=== PATIENT | female | born 1990 | race Caucasian/White ===

== ENCOUNTER → 2019-10-20 | Outpatient (CLI) | payer OTHER, SELFPAY ==
[2019-10-20 15:27] LABS: Absolute Lymphocyte Count 1.44 X10^3/uL (0.83-4.51); Absolute Neutrophil Count 4.8 X10^3/uL (2.0-7.7); Basophil# 0.04 X10^3/uL; Basophil% 0.6 % (0-1); Eosinophil# 0.02 X10^3/uL; Eosinophils% 0.3 % (0-5); Hematocrit 41.7 % (37-47); Hemoglobin 13.9 g/dL (12.0-15.0); Lymphocyte # 1.44 X10^3/ul (4.0); Lymphocyte % 21.1 % (19-41); Mean Corp Hgb Conc 33.3 g/dL (32-36); Mean Corpuscular Hgb 29.3 pg (27.0-32.0); Mean Corpuscular Volume 87.8 fL (81-99); Mean Platelet Vol. 10.4 fl (6.2-12.0); Monocyte# 0.47 X10^3/uL; Monocyte% 6.9 % (0-10); NRBC Flagged by Analyzer 0 % (0-5); Neutrophil # 4.83 X10^3/uL (2.7-7.7); Neutrophil % 70.8 % (47-70); Platelet Count 222 K/mm3 (150-450); RBC Distribution Width CV 12.7 % (11.6-14.6); RBC Distribution Width SD 41.1 fl (35.1-43.9); Red Blood Count 4.75 M/mm3 (4.2-5.4); White Blood Count 6.8 K/mm3 (4.4-11.0)
[2019-10-20 15:52] LABS: Thyroid Stim Hormone (TSH) 3.12 uIU/mL (0.358-3.74)
[2019-10-20 18:10] LABS: Chlamydia Trachomatis by PCR Negative (Negative); Neisserai gonorrhoeae by PCR Negative (Negative); Probe Check PASS; Sample Adequacy Control PASS; Specimen Processing Control PASS
[2019-10-21 08:35] LABS: HIV - WCH Non-Reactive (Nonreactive); Hepatitis B Surface Antigen Non-Reactive (Nonreactive); Hepatitis C Antibody Non-Reactive (Nonreactive); Rubella IgG 114.2 IU/mL
[2019-10-21 16:01] LABS: Free T3 2.4 pg/mL (2.18-3.98); T4 Free Direct 0.91 ng/dL (0.76-1.46)
[2019-10-22 08:07] LABS: Prenatal RPR NONREACTIVE (NONREACTIVE)
[2019-10-24 12:17] LABS: Thyroid Peroxidase AB 14 IU/mL (0-34)
== END | disposition home or self-care (01) ==
PROVIDERS: PCP Family Medicine; Referring Provider Obstetrics & Gynecology; Visit Provider Obstetrics & Gynecology
DX: Z12.4 Encounter for screening for malignant neoplasm of cervix (principal); Z11.3 Encounter for screening for infections with a predominantly sexual mode of transmission; O99.281 Endocrine, nutritional and metabolic diseases complicating pregnancy, first trimester; Z3A.00 Weeks of gestation of pregnancy not specified; E07.9 Disorder of thyroid, unspecified
CPT/HCPCS: 80307; 81002; 84439; 84443; 84481; 85025; 86376; 86703; 86762; 86803; 87340; 87491; 87591

== ENCOUNTER → 2020-02-17 10:49 | Outpatient (CLI) | payer OTHER, SELFPAY ==
[2020-02-17 11:53] LABS: Hematocrit 38.7 % (37-47); Mean Corp Hgb Conc 33.6 g/dL (32-36); Mean Corpuscular Hgb 30.2 pg (27.0-32.0); Mean Platelet Vol. 10.5 fl (6.2-12.0); Platelet Count 190 K/mm3 (150-450); RBC Distribution Width CV 12.5 % (11.6-14.6); RBC Distribution Width SD 40.9 fl (35.1-43.9); White Blood Count 7.9 K/mm3 (4.4-11.0)
[2020-02-17 12:00] LABS: Glucose Challenge Gest 1H 50g 128 mg/dL (70-140)
== END ==
PROVIDERS: PCP Family Medicine; Visit Provider Obstetrics & Gynecology
DX: Z34.83 Encounter for supervision of other normal pregnancy, third trimester (principal)
CPT/HCPCS: 36415; 82950; 85027

== ENCOUNTER → 2020-04-15 | Outpatient (CLI) | payer OTHER, SELFPAY | END | disposition home or self-care (01) | LOC: LABSPEC 11:10 | PROVIDERS: PCP Family Medicine; Visit Provider Obstetrics & Gynecology | DX: Z36.85 Encounter for antenatal screening for Streptococcus B (principal) | CPT/HCPCS: 87081 ==

== ENCOUNTER 2020-05-08 03:31 | Inpatient (IN) | payer OTHER, SELFPAY ==
[2020-05-08] VITALS (55 sets, daily range): BP systolic 82–136; BP diastolic 44–76; PULSE 54–90; RESP 18–20; TEMP 36.5–38; O2SAT 96–100; BMI 33.5
[2020-05-08] MEDS: Lactated Ringers 500 ML 999 ML IV ×2 (03:50→05:04)
[2020-05-08 03:59] LABS: Absolute Lymphocyte Count 1.31 X10^3/uL (0.83-4.51); Absolute Neutrophil Count 8.8 X10^3/uL (2.0-7.7); Basophil# 0.03 X10^3/uL; Basophil% 0.3 % (0-1); Eosinophil# 0.02 X10^3/uL; Eosinophils% 0.2 % (0-5); Hematocrit 41.1 % (37-47); Hemoglobin 13.7 g/dL (12.0-15.0); Lymphocyte # 1.31 X10^3/ul (4.0); Mean Corp Hgb Conc 33.3 g/dL (32-36); Mean Corpuscular Hgb 29.8 pg (27.0-32.0); Mean Corpuscular Volume 89.3 fL (81-99); Monocyte# 0.72 X10^3/uL; Monocyte% 6.6 % (0-10); NRBC Flagged by Analyzer 0 % (0-5); Neutrophil # 8.77 X10^3/uL (2.7-7.7); Neutrophil % 80.3 % (47-70); Platelet Count 184 K/mm3 (150-450); RBC Distribution Width CV 12.8 % (11.6-14.6); RBC Distribution Width SD 42.1 fl (35.1-43.9); White Blood Count 10.9 K/mm3 (4.4-11.0)
[2020-05-08] MEDS: Lactated Ringers 1,000 ML 50 ML IV (04:20)
--- NOTE | 2020-05-08 04:38 | PCM.HP.OB ---
- Problem List (1) 39 weeks gestation of Status: Acute History Date of Admission: 05/08/20 Final SRINI: 05/09/20 Final SRINI Source: US <20 weeks Gestational age: 39 Weeks and 6 Days History of this : This is a 29 year-old, G [1], P [], at 39 6/7 weeks gestational age presents with c/o contractions. Allergies latex Allergy (Verified 05/08/20 03:52) Rash Home Medications: Home Medications Famotidine [Pepcid] 10 mg PO BID 05/08/20 Vits [Prenatabs FA] 1 tab PO DAILY 05/08/20 Smoking Status: Former smoker Alcohol: None Number of Fetus(es): 1 NST - FHR Rate Baby A Baseline: 135 Variability:: Moderate Accelerations:: 15 x 15 Decelerations:: None NST Reactive:: Yes FHR Category:: Category I Uterine Activity:: 2-3/10 min History Past Pregnancies: Past Pregnancies Delivery Date Name GA/ Weeks Outcome Route Wt Sex Labor Length Anesthesia Delivery Location Provider FOB Labs: ACOG ANTEPARTUM RECORD - HISTORY AND PHYSICAL (05/08/2020) Name: EVIE PORTER OB Physician: HAYLEE 's Physician: UNDECIDED ...................................................................... : 1990 Age: 29 Address: [address] [place] [address] [place] [address] Phone: ([phone] ([phone] Insurance Carrier: [facility] [id number] Emergency Contact: INDRA NO [phone] ...................................................................... Final SRINI: 05/09/20 By Ultrasound: 14 weeks 1 day PARITY: (G-Total Pregnancies P-Fullterm,Premature,Induced AB,Spont AB, Ectopics, Multiple,Living) SRINI CONFIRMATION: By LMP: 08/03/19 Initial Exam: 05/09/20 Final SRINI: 05/09/20 BLOOD TYPE: AFP: 1 HR PG: GBS: Original Ordering Provider: Any LUCERO Culture Group B Beta Streptococcus is not isolated. Rublla titer (>10 immune)-- Hepatatis B john AG-- CULTURES:-- OB PROBLEM LIST: AFP and CF testing declined planned. Office class encouraged. Denies depression/anxiety. EPDS on 10/20/2019 = 2. 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 Illicit Drug Use - denies use of street drugs Sexual Activity - Residence - lives with Place of - [place], [place] Hours Worked - FT Spouse-Sig Other Name - Sulaiman Porter Spouse-Sig Other Occupation - [employer] Spouse-Sig Other Phone No - [phone] PRIOR DELIVERY HISTORY DEL DATE GEST LAB WT LB WT OZ TYPE ANES LABOR TX ANTEPARTUM FLOW CHART VISIT GE RTC FU F F CA U U DATE WK MD WKS HT PN HR M SS BP ED WT CA GL D EF ST __ ____ ___ __ __ ___ __ __ __ ___ __ __ __ ___ __ 18 Apr 39 SHM 1 36 V + + 118/74 sl 211 tr ne 1 60 -3 11 Apr SHM 1 38 V + + 124/82 sl 206 tr ne 1 60 -5 06 Apr 37 SHM 1 37 V + + 104/70 sl 205 tr - 1 60 -5 30 Oct 36 SHM 1 35 V + + 96/70 sl 204 tr - 14 Oct 34 SHM 2 34 V + + 100/70 sl 201 tr - 02 Oct 32 SHM 2 33 V + + 104/72 sl 199 - - 17 Sep 30 CM 2 29 + + 118/70 sl 195 - - 02 Sep 28 SHM 2 28 ? + + 110/62 sl 193 tr - 05 Jan 24 SHM 4 24 + + 100/60 0 186 tr - 08 Dec 20 SHM 4 20 on O 110/64 0 180 tr - Nov 30 SHM 4 + - 122/74 0 179 tr - October 28 SHM 2 on US 110/70 176 tr - ANTEPARTUM NOTE(S): May 04 2020: Apr 27 2020: Apr 22 2020: see note Apr 15 2020: GBS and LARC Mar 30 2020: doing well Mar 18 2020: Breast pump/ maternity leave questions Mar 03 2020: Feb 17 2020: Questions about materinty leave. Glucola done today. AM Jan 20 2020: doing well, glucola given Dec 23 2019: feeling well, comp u/s today Nov 23 2020: see note Nov 10 2019: see note COMPREHENSIVE ANTEPARTUM NOTE(S): May 04 2020: Shannon is here for PNV. States she is feeling pretty good with only occ bouts of nauesa and heartburn. No definitive CTX. Good FM. Slight swelling in hands and feet. Urine dipped tr and neg. LSS May 04 2020: Fetus dropped in pelvis, however cervix is posterior to head. Pt plans expectant management at this time. Apr 27 2020: Shannon is here for PNV. States she is feeling pretty good. Good FM. Slight edema noted in hands and feet. No CTX that she has noticed. However, some cramping. Urine dipped tr and neg. No concerns for today. LSS Apr 27 2020: Cervix remains POSTERIOR. Discussed membrane sweeping for next visit if desires. studying for final actuarial exam so they are hoping to have the baby AFTER that. Discussed IOL indications, elective IOL at 39wga if desires, otherwise, risk for stillbirth rises slightly at end of 40wga into 41+ wga. Apr 22 2020: Evie is being seen for PNV. Pt is 37 weeks and 4 days. Pt is having possible cxs on and off. She also states she is having pressure on and off. AM Apr 22 2020: Cervix POSTERIOR and moderate. Starting maternity leave given works as nurse and advised to quarantine approx 2 weeks prior to anticipated delivery to limit potential COVID19 exposure and illness at time of delivery. Labor precautions. GBS neg. Apr 18 2020: H taken to OB. tkg Apr 15 2020: Evie is here for a PNV. Good FM. SL edema in hands and feet, especially after working a 12 hr shift. No concerns or complaints. Would like to discuss COVID testing for when she goes into labor. GBS and LARC today. Consent signed. LARC reviewed and signed. MK Apr 15 2020: LARC declined. GBS obtained. Discussed cervical check indications. Pt declines today. Preeclampsia, labor, FM precautions. Will start maternity leave in 1 week. Discussed COVID19 testing procedures. Mar 30 2020: Evie is here for PNV. She is doing well, no complaints or concerns. She did have Influenza and Tdap vaccine. FM, PTL reviewed, GBS at next visit. LMT Mar 30 2020: Plans to use luisa Layton for home support now and in early labor. Desires only her in delivery room. She will obtain breast pump via [employer]. PTL, FM precautions. Tolerating work well, has mild sciatica, but manageable with stretches. GBS at next visit, indications reviewed. Mar 18 2020: Evie is here for a PNV. Good FM. Sl edema in ankles. Has questions regarding how to get her breast pump through insurance and maternity leave paperwork/ a doctors note for extending it. MK Mar 18 2020: Reviewed vacuum and C/S indications, risks. Plans 14w maternity leave starting at 38wga. Advised to call insurance company to f/u if rx or insurance ppw needed for breast pump. Did not have labs drawn at last visit. Denies thyroid related sx. Will plan for TFTs at 6w visit if continues to feel well. Mar 03 2020: Good FM. In the process of packing / cleaning to move. She had called the office on 02/25 w/onset of sharp vaginal pain noted after sweeping her garage. Now reporting pubic bone pain which is worse when on her feet (still workin on [employer] [facility]), sitting in a hard chair, increase in activity. Better with rest, Tylenol and a warm bath. Reviewed pubic bone has cartilege in the middle, which can soften w/hormones of which can cause a separtion. Advised all good to continue as needed. She ordered a tummy support, which may offer some support. kbm Mar 03 2020: 30/3w. +Good fm. Feeling pubic bone and groin pain with long standing and movement. Relieved with tylenol, warm bath, and rest. Getting belly band for support. Precuations given to call or come in. TFTs drawn Feb 17 2020: PTL, ROM, FM precautions. Discussed ppbc and optimal childbirth spacing - plans withdraw or condoms. Discussed PABON also. 12w maternity leave planned. Reviewed quarantine at 37-38w x 2 weeks to limit COVID19 exposure at time of labor, however, pt understands majority of women labor at 40w or later. Moving date pushed back to early March. She is unable to take childbirth class, will connect with data conversion operator, considering if she would like her for labor support also. Jan 20 2020: Evie is here for PNV. She is given glucola with instructions. Encouraged Influenza and Tdap vaccines. FM reviewed. LMT Jan 20 2020: PTL, ROM precautions reviewed. Discussed labor analgesia - non-committed. Plans childbirth class. No edema. Dec 23 2019: Anatomy scan wnl. AGA, EFW 29th%. POSTERIOR PLACENTA. FEMALE. Feels well. Nausea resolved. They are moving to a home in town. Planning to paint, reviewed solvent free and good ventilation. Discussed [place] contractions and PTL precautions. Nov 27 2019: TELEHEALTH NOB VISIT. Evie is a 29 year old with an SRINI of 05/09/2020, current GA is 16 w 4 d. She resides with her , Sulaiman, and she states that they are both excited. 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, FT rn intern. She reports that they are moving to a new home soon, and discussed lifting restrictions. She states that she feels very well. No FM noted yet, and she states that she is excited to feel the baby move. Denies recent clots /spotting, as she had been experiencing earlier in the . Delivery at [facility] is planned, she states that she may have an epidural, but that she wants to research this more, an she will breastfeed. Encouraged and childbirth classes. Office practice patterns reviewed, labs were collected on 10/20/2019. Emergencies/danger signs to report, round ligament pain, reporting a suspected UTI, and common OTC medications approved/not approved for use during reviewed. She is a life long non-smoker, and denies use of drugs or ETOH. AFP and CF testing declined on 11/24/2019, consent signed as such. Genetic Screening form completed on 10/20/2019. Denies no history of depression/anxiety. EPDS on 10/20/2019 = 0. Evie takes an OTC vitamin and states that she tolerates this well. She walks 6 days a well, and works out. Exercise guidelines for reviewed. She eats a well balance diet, and has good water intake. caloric/water/dietary needs reviewed, along with recommended weight gain, limiting caffeine to one cup a day, limiting empty calories, and food safety during . Evie states that she understands all information provided during 50 minute telephone NOB visit, and has no questions following same. AW Nov 24 2019: Evie is here for a PNV. 16 wks and 1 days. No FM felt yet. No complaints at this time. Would like to discuss what she can use on her flaring up eczema spots and what her positive uria plasma means for the rest of her . MK Nov 24 2019: Evie has changed her mind and has decided NOT to have genetics testing or CF testing; new consent signed as such. kbm Nov 10 2019: Evie is here for evaluation of bleeding in . She noted some clots and spotting on Saturday. She has not had any heavy bleeding. Urine dip is negative except for trace of blood. LMT Nov 10 2019: Recurrent spotting bright red to brown with increased activity and intercourse. Denies pain, cramping, vaginal itching/burning, discharge. US with no evidence of bleed, placenta appears posterior. Exam with brown tinged mucus from cervical os without cervical or vaginal inflammation or lesion. Vaginitis NAAT obtained. Bleeding precautions reviewed. Limiting lifting to 20lb, avoid intercourse and maintain low impact activity. Oct 20 2019: Evie is here for a missed menses appt. She is doing well. LMP 08/03/2019. Has experienced some nausea but it has subsided. Updated medications, allergies and history. Taking a pnv and probiotic. This is her first . Consents signed for GC/CHL cultures and labs. SRINI 05/10/2020. ADELE REVIEW OF SYSTEMS: GENERAL - Denies fever, or chills SKIN - Denies rash, new skin lesions, or change in moles EYES - Denies blurred vision, or change in visual acuity EARS - Denies ear pain, or difficulty hearing NOSE - Denies nasal congestion, discharge, or bleeding MOUTH - Denies sore throat, or difficulty swallowing NECK - Denies pain or swelling RESPIRATORY - Denies shortness of breath, cough, wheezing CARDIOVASCULAR - Denies palpitations, chest pain, orthopnea, PND, peripheral edema, syncope or claudication GASTROINTESTINAL - Denies nausea, vomiting, diarrhea, constipation, Denies abdominal pain, melena and or bright red blood GENITOURINARY - Denies dysuria, frequency of urination, urgency, or hesitancy MUSCULOSKELETAL - Denies joint or muscle pain, or back pain NEUROLOGICAL - Denies localized numbness, weakness, or tingling PSYCHIATRIC - Denies depression, anxiety, substance abuse or suicide attempts ENDOCRINE - Denies heat or cold intolerance, weight loss or gain, increasing thirst HEMATO-IMMUNOLOGIC - Denies easy bruising, bleeding, oral ulcerations or recurrent infections GENETICS SCREENING: Age 35+ years: No Thalassemia: No Neural Tube Defect: No Down Syndrome: No YAO-SACHS: No Sickle Cell Disease: No Hemophilia: No Musc. Dystrophy: No Cystic Fibrosis: No-declines screening Julia Chorea: No Mental Retardation: No Fragile X: No Other genetic: No Other defects: No SABs/still births: No Drugs since LMP: No INFECTION HISTORY: High risk AIDS: No High risk Hepatitis: No Exposed to TB: No Exposed to Herpes: No Rash/viral illness since LMP: No History of STD: No MENSTRUAL HISTORY: *Menses Amount/Duration: 4 daysMenses Regularity: regularFrequency: monthlyMenarche (Age Onset): 13* PAST SUMMARY: PARITY: 1. Total Pregnancies............ 1 2. Full Term Pregnancies........ 0 3. Premature.................... 0 4. Abortions - Induced.......... 0 5. Abortions - Spontaneous...... 0 6. Ectopics..................... 0 7. Multiple Births.............. 0 8. Living Children.............. 0 Mom's Microbiology 05/08/20 03:41 Mucosa - Nose SARS-CoV-2 Antigen (Rapid) - Pending Mom's Labs & Results 05/08/20 05/08/20 03:50 03:50 WBC 10.9 RBC 4.60 Hgb 13.7 Hct 41.1 MCV 89.3 MCH 29.8 MCHC 33.3 RDW Std Deviation 42.1 RDW Coeff of Catrachita 12.8 Plt Count 184 MPV 11.0 Immature Gran % (Auto) 0.600 Neut % (Auto) 80.3 H Lymph % (Auto) 12.0 L [place] % (Auto) 6.6 Eos % (Auto) 0.2 Baso % (Auto) 0.3 Absolute Neuts (auto) 8.8 H Absolute Lymphs (auto) 1.31 Nucleated RBC % 0 Blood Type Pending Antibody Screen Pending Course Did the patient receive Yes care? Labs Blood Type: A RH: POSITIVE Rubella status Immune HbSAg Negative Date Done: 10/20/19 Chlamydia Negative Gonorrhea Negative HIV/AIDS Non-Reactive Group B Strep: Negative Current Obstetrical History Gestational Diabetes No Incompetent Cervix No Infertility No IUGR No Macrosomia No Hypertension/Pre-eclampsia No Placenta Previa/Abruption No PTL/PROM No Uterine anomaly No Oligohydramnios No Polyhydramnios No Multiple gestation No Past Medical History Asthma No Diabetes No Hypertension No Heart disease No Mitral valve prolapse No Neurologic/Seizure disorder/ No Migraines Kidney disease No Liver disease No Varicosities No Clotting disorders/Hx of DVT No Thyroid Dysfunction No Other medical diseases No Psychiatric disorders No Major trauma No Abnormal PAP smear No Sleep apnea No Mammogram in the last 2 years No Social History Marital Status: Alleged father Sulaiman Porter Hx Smoking No Smoking Status Former smoker Expected Infant Delivery Method: Spontaneous Vaginal Number of Visits: 12 Physical Exam Vitals: Vital Signs Temp Pulse BP Pulse Ox 98.1 F 76 136/76 H 99 05/08/20 03:40 05/08/20 04:35 05/08/20 04:35 05/08/20 04:34 General: Alert, Oriented x3, Cooperative, No apparent distress HEENT: Atraumatic, Normocephalic Abdomen: Soft, Non Tender, Gravid Neurological: Neuro grossly intact Estimated gestational size: Appropriate for gestational size Cervix Dilation (cm): 7 - Per RN exam Lisa [place]: -1 Effacement (%): 90 Assessment/Plan All Active Problems 39 weeks gestation of (Acute) (spontaneous vaginal delivery) (Acute) This is a 29 year-old, G [1], P [], at 39 6/7 weeks gestational age in labor, Cat I FHR -Expectant management -Epidural per patient request
[2020-05-08] MEDS: fentaNYL-bupivacaine (epidural) 100 ML BAG EPIDURAL ×2 (04:45→11:33)
[2020-05-08] MEDS: Ondansetron 4 MG/2 ML Vial IV (05:20)
[2020-05-08] MEDS: Mag Hydrox/Al Hydrox/Simeth 30 ML UDC PO ×2 (07:12→13:03)
[2020-05-08] MEDS: Lactated Ringers 1,000 ML 200 ML IV ×2 (09:46→15:02)
[2020-05-08] MEDS: Oxytocin 30 units/NS 500 ml 30 UNITS/500 ML IV.SOLN IV (11:06)
[2020-05-08] MEDS: Oxytocin 30 units/NS 500 ml 30 UNITS/500 ML IV.SOLN 334 UNITS IV (18:01)
--- NOTE | 2020-05-08 18:19 | PCM.OPRPT ---
Problem List (1) 39 weeks gestation of Status: Acute (2) (spontaneous vaginal delivery) Status: Acute Vaginal Delivery Maternal Presentation: Active Labor Method of Induction: - - Amniotomy, pitocin augmentation Amniotic Membrane Rupture Type: Artificial Rupture of Membrane time: 05/08/20 Amniotic Fluid Description: Lightly stained meconium Final SRINI: 05/09/20 Gestational age: 39 Weeks and 6 Days [place] doctor who attended delivery (if requested by OB): Josiah Todd Date of Procedure: 05/08/20 Pre-Operative Diagnosis: 39 6/7wga, labor Post-Operative Diagnosis: 39 6/7wga, labor Surgery/ Procedure Performed: Vacuum Assisted Vaginal Delivery Anesthesiologist: Thea Reed Type of Anesthesia: Epidural Description of Procedure: Patient was FD/+2 station on my arrival and pushing to + 3. ISE was placed. She pushed with excellent maternal effort to +4 station, FHR Cat II with recurrent decelerations with contractions. Pitocin was discontinued and maternal O2 supplemented. I performed Ritgen manuever with no significant descent then advised assistance. Reviewed vacuum related risks, benefits and indications. Fetus was MAGGIE. The Kiwi cap was placed at the flexion point and 500mmHg applied. A single pull was performed over 1 contraction with continued maternal efforts resulting in delivery of the head. The vacuum suction was released. Infant shoulders delivered with ease to reveal a female infant. Infant was placed on the maternal abdomen and further attended by nursery personnel. The cord was doubly clamped and cut at 3 minutes of life. Cord gases were obtained. Placenta delivered spontaneously and appeared intact. A second degree perineal laceration with vaginal extension was repaired with 3-0 Vicryl Rapide. Sponge and needle counts correct x 2. Presentation: Vertex Placental Delivery Description: Spontaneous Placenta Disposition: [facility] Cord Vessel Description: 3 Vessels Nuchal Cord Compression: Without compression Cord Gases drawn per routine: ABG, VBG Cord Entanglement: None Drain: Mckeon to straight drain Estimated Blood Loss: 450 ml A gender: Female (1 minute): 8 (5 minute): 9 Episiotomy Description: None Laceration: Midline, Vaginal Extension/lac, 2nd degree Medications given after delivery: IV Pitocin Complications: None
--- NOTE | 2020-05-08 19:44 | NURSING ---
This RN set pt up with pump and supplies at this time. RN reviewed proper pump settings and care with pt. RN also explained need for pumping and frequency of pumping at this time. Pt verbalizes understanding. Pt sitting up in bed pumping at this time.
[2020-05-08] MEDS: 0.9% Saline Lock 10 ML Syringe IV (20:35)
[2020-05-08] MEDS: Acetaminophen 500 MG Tablet 1000 MG PO (22:18)
[2020-05-09] MEDS: Ibuprofen 600 MG Tablet PO ×2 (02:23→17:27)
[2020-05-09 03:05] VITALS: BP 107/68; PULSE 59; RESP 18; TEMP 36.7
[2020-05-09] MEDS: Acetaminophen 500 MG Tablet 1000 MG PO ×2 (06:20→22:15)
--- NOTE | 2020-05-09 06:59 | PCM.PN.OB ---
Patient Problems: Active and Suspected Problems 39 weeks gestation of (Acute) (spontaneous vaginal delivery) (Acute) Subjective: PPD1 Minimal lochia. Not too sore. Slept well overnight. - Physical Exam Vitals/I&O's: Vital Signs Temp Pulse Resp BP Pulse Ox 98.1 F 59 L 18 107/68 96 05/09/20 03:05 05/09/20 03:05 05/09/20 03:05 05/09/20 03:05 05/08/20 20:22 Oxygen Delivery Method Room Air Weight: 94.1 kg Body Mass Index (BMI) 33.5 Intake and Output for Last 24 Hours 05/07/20 05/08/20 05/09/20 23:59 23:59 23:59 Intake Total 5006.13 / 5006.13 Output Total 2615 / 2615 Balance 2391.13 / 2391.13 General: Alert, Oriented x3, No apparent distress HEENT: Atraumatic, Normocephalic Neck: Supple Lungs: Normal air movement Cardiovascular: Regular rate Abdomen: Soft, Non Tender - uterus 2 cm below umbilicus Extremities: No edema Psych/Mental Status: Normal Affect Microbiology Past 72 Hours 05/08/20 03:41 Mucosa - Nose SARS-CoV-2 Antigen (Rapid) - Final Current Medications Acetaminophen (Acetaminophen 500 Mg Tablet) 1,000 mg PO Q8H PRN PRN PRN Reason: Pain Score 1-10 Last Admin: 05/09/20 06:20 Dose: 1,000 mg Documented by: Bisacodyl (Bisacodyl 10 Mg Suppository) 10 mg RECTAL UD PRN PRN Reason: If no BM Dibucaine (Dibucaine 30 Gm Tube) 1 applic TOPICAL TID PRN PRN; Protocol PRN Reason: Discomfort Hydrocortisone (Hydrocortisone 2.5% Crm) 1 applic TOPICAL TID PRN PRN; Protocol PRN Reason: Discomfort Ibuprofen (Ibuprofen 600 Mg Tablet) 600 mg PO Q6H PRN PRN PRN Reason: Pain Score 1-10 Last Admin: 05/09/20 02:23 Dose: 600 mg Documented by: Methylergonovine Maleate (Methylergonovine 0.2 Mg/Ml Ampul) 0.2 mg IM X1 PRN PRN Reason: Excess bleeding/uterine atony Ondansetron HCl (Ondansetron 4 Mg/2 Ml Vial) 4 mg IV Q4H PRN PRN PRN Reason: NAUSEA Last Admin: 05/08/20 05:20 Dose: 4 mg Documented by: Multivit/Folic Acid/Iron ( Vits Tablet) 1 tablet PO DAILY@1200 JANNA Senna/Docusate Sodium (Senna/Docusate Sodium 1 Tablet) 1 - 2 tablet PO DAILY PRN PRN PRN Reason: Constipation Simethicone (Simethicone 80 Mg Tablet) 80 mg PO PCHS PRN PRN Reason: Indigestion/Stomach pain Sodium Chloride (0.9% Saline Lock 10 Ml Syringe) 5 - 15 ml IV UD PRN PRN Reason: SALINE FLUSH Last Admin: 05/08/20 20:35 Dose: 10 ml Documented by: Medical Necessity - Tobacco Use Smoking Status: Never smoker Assessment/Plan All Active Problems 39 weeks gestation of (Acute) (spontaneous vaginal delivery) (Acute) PPD#1 s/p VAVD. Doing well. . Baby in special care nursery receiving antibiotics, patchy infiltrates noted on xray per patient. Home likely tomorrow.
[2020-05-09 07:29] VITALS: BP 103/63; PULSE 61; RESP 16; TEMP 36.8
[2020-05-09] MEDS: Prenatal Vits Tablet 1 TABLET PO (12:55)
[2020-05-09 12:56] VITALS: BP 115/70; PULSE 72; RESP 16; TEMP 36.7
[2020-05-09 22:08] VITALS: BP 115/65; PULSE 68; RESP 16; TEMP 36.8
[2020-05-09] MEDS: Senna/Docusate Sodium 1 Tablet PO (22:15)
[2020-05-10 01:59] VITALS: BP 122/68; PULSE 52; RESP 14; TEMP 36.2
[2020-05-10 07:54] VITALS: BP 104/61; PULSE 59; RESP 16; TEMP 36.7
--- NOTE | 2020-05-10 08:36 | PN.OBGYN_ITS ---
Patient Problems: Active and Suspected Problems 39 weeks gestation of (Acute) (spontaneous vaginal delivery) (Acute) Subjective: Feels well. Her perineum is sore, but this is manageable. No voiding difficulties. Lochia is moderate. No complaints. She is nursing and pumping. remains in the special care nursery. Objective: AVSS - Physical Exam Vitals/I&O's: Vital Signs Temp Pulse Resp BP Pulse Ox 98.1 F 59 L 16 104/61 96 05/10/20 07:54 05/10/20 07:54 05/10/20 07:54 05/10/20 07:54 05/08/20 20:22 Oxygen Delivery Method Room Air Weight: 94.1 kg Body Mass Index (BMI) 33.5 Intake and Output for Last 24 Hours 05/08/20 05/09/20 05/10/20 23:59 23:59 23:59 Intake Total 5006.13 / 5006.13 Output Total 2615 / 2615 Balance 2391.13 / 2391.13 General: Alert, Oriented x3, Cooperative, No apparent distress HEENT: Atraumatic, Normocephalic Lungs: Clear to auscultation, Normal air movement Cardiovascular: Regular rate, Regular Rhythm, Normal S1, Normal S2 Abdomen: Soft, Non Tender, Non-Distended, - - Fundus firm and nontender Extremities: No Calf Tenderness Neurological: Neuro grossly intact Psych/Mental Status: Normal Affect, Appropriate, Alert and oriented to time, place, person, mood and affect Microbiology Past 72 Hours 05/08/20 03:41 Mucosa - Nose SARS-CoV-2 Antigen (Rapid) - Final Current Medications Acetaminophen (Acetaminophen 500 Mg Tablet) 1,000 mg PO Q8H PRN PRN PRN Reason: Pain Score 1-10 Last Admin: 05/09/20 22:15 Dose: 1,000 mg Documented by: Bisacodyl (Bisacodyl 10 Mg Suppository) 10 mg RECTAL UD PRN PRN Reason: If no BM Dibucaine (Dibucaine 30 Gm Tube) 1 applic TOPICAL TID PRN PRN; Protocol PRN Reason: Discomfort Hydrocortisone (Hydrocortisone 2.5% Crm) 1 applic TOPICAL TID PRN PRN; Protocol PRN Reason: Discomfort Ibuprofen (Ibuprofen 600 Mg Tablet) 600 mg PO Q6H PRN PRN PRN Reason: Pain Score 1-10 Last Admin: 05/09/20 17:27 Dose: 600 mg Documented by: Methylergonovine Maleate (Methylergonovine 0.2 Mg/Ml Ampul) 0.2 mg IM X1 PRN PRN Reason: Excess bleeding/uterine atony Ondansetron HCl (Ondansetron 4 Mg/2 Ml Vial) 4 mg IV Q4H PRN PRN PRN Reason: NAUSEA Last Admin: 05/08/20 05:20 Dose: 4 mg Documented by: Multivit/Folic Acid/Iron ( Vits Tablet) 1 tablet PO DAILY@1200 JANNA Last Admin: 05/09/20 12:55 Dose: 1 tablet Documented by: Senna/Docusate Sodium (Senna/Docusate Sodium 1 Tablet) 1 - 2 tablet PO DAILY PRN PRN PRN Reason: Constipation Last Admin: 05/09/20 22:15 Dose: 2 tablet Documented by: Simethicone (Simethicone 80 Mg Tablet) 80 mg PO PCHS PRN PRN Reason: Indigestion/Stomach pain Sodium Chloride (0.9% Saline Lock 10 Ml Syringe) 5 - 15 ml IV UD PRN PRN Reason: SALINE FLUSH Last Admin: 05/08/20 20:35 Dose: 10 ml Documented by: Medical Necessity - Tobacco Use Smoking Status: Never smoker Assessment/Plan All Active Problems 39 weeks gestation of (Acute) (spontaneous vaginal delivery) (Acute) This is a 29 year-old, G [1], P [1001 PPD#2 s/p VAVD doing well. -Rh positive - - in [facility], abx discontinued and weaning glucose supplementation -d/c to hotel today
--- NOTE | 2020-05-10 08:41 | DCINST_ITS ---
Discharge Diet: No Restrictions Discharge Activity: Return to Normal Activity, May Shower, May Take a Tub Bath May resume sexual activity in: 6 weeks Lifting Restrictions: 20 lb Call your doctor if you observe: Fever of 101 or Higher, Inability to urinate, Inability to have a bowel movement, Using more than one pad per hour, Shortness of breath, Calf discomfort, Uncontrolled pain Suture Line Care: Avoid Pulling/Pushing Cleanse incision/area with: Soap & Water Additional Instructions: If you experience any of the following, contact your healthcare provider. * Bleeding that soaks a pad every hour for 2 hours * Fever 100.4 or higher * Unrelieved incision or abdominal pain * Swelling, redness, discharge or bleeding from your incision or episiotomy site * Your incision begins to separate * Problems urinating (including inability to urinate or burning while urinating). * Visual changes * Severe headache * Flu-like symptoms * Pain or redness in one of both of your breasts * Pain, warmth, tenderness or swelling in your legs, especially the calf area * Frequent nausea and vomiting * Symptoms of depression or anxiety If you experience any of the following, call 911 or go to the nearest Emergency Room. * Chest pain * Problems breathing * Seizure activity * Partial or complete paralysis of a body part, slurred speech, weakness or drooping of the face, or a sudden inability to walk or hold your balance Allergies/Adverse Reactions: Allergies latex Allergy (Verified 05/08/20 03:52) Rash Medications to take at Discharge Vits [Prenatabs FA ] 1 tab PO DAILY 05/08/20 Ibuprofen [Motrin] 600 mg PO TID PRN #30 tab 05/10/20 The following prescriptions were given: Ibuprofen [Motrin] 600 mg PO TID PRN #30 tab PRN Reason: Pain Score 1-10 Transmission Status: Pending to [facility] Please Follow Up With: Any Marley MD When: 6 weeks Primary Care Physician: Cheikh Dozier MD [Primary Care Provider] - Test Results: Test results from this visit will be discussed in further detail at your follow- up appointment, if applicable.
== END 2020-05-10 09:41 | disposition home or self-care (01) | DRG 807 ==
LOC: OBT 03:31 → WP 03:31
PROVIDERS: Admitting Provider Obstetrics & Gynecology; PCP Family Medicine; Referring Provider Obstetrics & Gynecology; Visit Provider Obstetrics & Gynecology
DX: O76 Abnormality in fetal heart rate and rhythm complicating labor and delivery (principal); Z37.0 Single live birth; O77.0 Labor and delivery complicated by meconium in amniotic fluid; O70.1 Second degree perineal laceration during delivery; Z3A.39 39 weeks gestation of pregnancy
CPT/HCPCS: 59025; 59050; 85025; 86850; 86900; 86901; 87426; 99218; J7120; A4216; G0378; J2405

== ENCOUNTER → 2020-12-20 11:15 | Outpatient (CLI) | payer OTHER, SELFPAY ==
[2020-05-08 03:47] VITALS: BMI 33.5
[2020-12-20 13:41] LABS: hCG Titer Quant., Serum 3453 mIU/mL (1-3)
== END ==
PROVIDERS: PCP Family Medicine; Visit Provider Obstetrics & Gynecology
DX: N91.2 Amenorrhea, unspecified (principal)
CPT/HCPCS: 36415; 84702

== ENCOUNTER → 2021-01-09 14:06 | Outpatient (CLI) | payer OTHER, SELFPAY ==
[2020-05-08 03:47] VITALS: BMI 33.5
[2021-01-09 14:52] LABS: Absolute Lymphocyte Count 1.39 X10^3/uL (0.83-4.51); Absolute Neutrophil Count 3.9 X10^3/uL (2.0-7.7); Basophil# 0.04 X10^3/uL; Basophil% 0.7 % (0-1); Eosinophil# 0.03 X10^3/uL; Eosinophils% 0.5 % (0-5); Hematocrit 38.2 % (37-47); Hemoglobin 12.4 g/dL (12.0-15.0); Lymphocyte # 1.39 X10^3/ul (0.83-4.51); Lymphocyte % 23.4 % (19-41); Mean Corp Hgb Conc 32.5 g/dL (32-36); Mean Corpuscular Hgb 29.1 pg (27.0-32.0); Mean Corpuscular Volume 89.7 fL (81-99); Mean Platelet Vol. 10.8 fl (6.2-12.0); Monocyte# 0.56 X10^3/uL; Monocyte% 9.4 % (0-10); NRBC Flagged by Analyzer 0 % (0-5); Neutrophil # 3.92 X10^3/uL (2.7-7.7); Neutrophil % 65.8 % (47-70); Platelet Count 219 K/mm3 (150-450); RBC Distribution Width CV 13.1 % (11.6-14.6); RBC Distribution Width SD 42.6 fl (35.1-43.9); Red Blood Count 4.26 M/mm3 (4.2-5.4)
[2021-01-09 16:03] LABS: HIV - WCH Non-Reactive (Nonreactive); Hepatitis B Surface Antigen Non-Reactive (Nonreactive); Hepatitis C Antibody Non-Reactive (Nonreactive); Rubella IgG Reactive (Nonreactive); Syphilis Antibodies Non-reactive
[2021-01-09 16:58] LABS: Mucous, Urine 0 SEEN /hpf (<or=2+); Red Blood Cells-Urine 0 SEEN /hpf (0-5); White Blood Cells 0 SEEN /hpf (0-5)
[2021-01-09 17:38] LABS: Thyroid Stim Hormone (TSH) 2.71 uIU/mL (0.358-3.74)
[2021-01-09 17:47] LABS: Color, Urine Yellow (Yellow); Glucose, Dipstick Normal (Normal); Ketone-Dipstick Negative (Negative); Leukocyte Esterase-Dipstick Negative /ul (Negative); Nitrite-Dipstick Negative (Negative); Occult Blood-Urine Negative /ul (Negative); Protein-Dipstick Negative (Negative); Urine Bilirubin Dipstick Negative (Negative); Urine Clarity Clear (Clear); Urine Urobilinogen Normal (Normal)
[2021-01-09 17:48] LABS: Amphetamine Urine VISTA NEGATIVE (<1000 ng/mL); Barbiturate Urine VISTA NEGATIVE (< 200 ng/mL); Benzodiazepine Urine VISTA NEGATIVE (< 200 ng/mL); Cocaine Urine VISTA NEGATIVE (< 300 ng/mL); Ecstacy Urine VISTA NEGATIVE (< 500 ng/mL); Methadone Urine VISTA NEGATIVE (< 300 ng/mL); PCP Urine VISTA NEGATIVE (< 25 ng/mL); THC Urine VISTA NEGATIVE (< 50 ng/mL); Vista UDS pH Range 4
[2021-01-09 18:04] LABS: Bacteria 1+ /hpf (None Seen); Squamous Epithelial Cells - UA 5-10 SEEN /hpf (5-10)
[2021-01-11 18:54] LABS: T4 Free Direct 0.79 ng/dL (0.76-1.46)
[2021-01-12 08:08] LABS: Chlamydia By Nucleic Acid AMP Negative (Negative)
[2021-01-12 12:27] LABS: Gonococcus By Nucleic Acid AMP Negative (Negative)
== END ==
PROVIDERS: PCP Family Medicine; Visit Provider Obstetrics & Gynecology
DX: Z34.81 Encounter for supervision of other normal pregnancy, first trimester (principal); Z11.3 Encounter for screening for infections with a predominantly sexual mode of transmission
CPT/HCPCS: 36415; 80307; 81001; 84439; 84443; 85025; 86703; 86762; 86780; 86803; 87086; 87088; 87340; 87491; 87591

== ENCOUNTER → 2021-03-30 | Outpatient (CLI) | payer OTHER, SELFPAY | END | disposition home or self-care (01) | LOC: LABSPEC 13:06 | PROVIDERS: PCP Family Medicine; Referring Provider Physician Assistant; Visit Provider Physician Assistant | DX: Z20.822 Contact with and (suspected) exposure to COVID-19 (principal) | CPT/HCPCS: 87635; U0005; U0003 ==

== ENCOUNTER 2021-08-24 15:40 | Inpatient (IN) | payer OTHER, SELFPAY ==
[2021-08-24] VITALS (29 sets, daily range): BP systolic 103–126; BP diastolic 54–86; PULSE 63–100; RESP 18; TEMP 36.5–37.4; O2SAT 99–100; BMI 36.1
[2021-08-24] MEDS: Lactated Ringers 500 ML 999 ML IV (16:15)
[2021-08-24] MEDS: Lactated Ringers 1,000 ML 50 ML IV (16:15)
[2021-08-24 16:50] LABS: Absolute Neutrophil Count 7.5 X10^3/uL (2.0-7.7); Basophil# 0.03 X10^3/uL; Basophil% 0.3 % (0-1); Eosinophil# 0.03 X10^3/uL; Eosinophils% 0.3 % (0-5); Hematocrit 37.9 % (37-47); Hemoglobin 12.5 g/dL (12.0-15.0); Lymphocyte % 15.1 % (19-41); Mean Corpuscular Hgb 27.5 pg (27.0-32.0); Mean Corpuscular Volume 83.3 fL (81-99); Mean Platelet Vol. 10.5 fl (6.2-12.0); Monocyte# 0.79 X10^3/uL; NRBC Flagged by Analyzer 0 % (0-5); Neutrophil # 7.54 X10^3/uL (2.7-7.7); Platelet Count 225 K/mm3 (150-450); RBC Distribution Width CV 13.2 % (11.6-14.6); RBC Distribution Width SD 39.9 fl (35.1-43.9); Red Blood Count 4.55 M/mm3 (4.2-5.4); White Blood Count 9.9 K/mm3 (4.4-11.0)
--- NOTE | 2021-08-24 17:29 | PCM.HP.BLA ---
History and Physical Date of Admission: 08/24/21 HPI: 31-year-old G2, P1 at 40/6 weeks, SRINI 08/18/2021y 12-week ultrasound, admitted in active labor. Patient reports contractions. Denies leaking of fluid, vaginal bleeding. Reports movement. Denies headache, vision changes, chest pain or shortness of breath, nausea or vomiting, diarrhea or constipation, fevers or chills. complicated by: Resolved pelviectasis, COVID in , subclinical hypothyroidism [employer] history: G1: 05/08/20 Female 39 wks 48 hrs Vag G2: Current Medical history: 1. Subclinical hypothyroidism 2. Eczema Surgical history: Denies Allergies: Latex causes hives or rash Social history: Denies tobacco, alcohol, drug use Family history: Noncontributory Medications: 1. Synthroid 2. vitamin 3. Pepcid Review of systems: Negative otherwise stated as above Physical Exam: Blood pressure 126/64, pulse 73, temp 98.9 ?F, heart rate 100, respiratory rate 16 General: No acute distress, uncomfortable with contractions HEENT: Normocephalic/atraumatic, PERRLA Cardiac: Regular rate and rhythm Respiratory clear to auscultation bilaterally Abdomen: Soft, nontender, gravid Extremities: Minimal edema Musculoskeletal: Strength 5 out of 5 throughout all extremities Neurologic: Cranial nerves II through XII grossly intact, no focal deficits Cervical exam: 8 to 9 cm, AROM clear fluid panel: A positive Rubella immune Syphilis nonreactive HIV nonreactive Hep B/hep C both negative Group beta strep negative on 07/21, Labs today: WBC 9.9, hemoglobin/hematocrit 12.5/37.9, platelets 225 31-year-old G2, P1 at 40/6 weeks, SRINI 08/18/2021y 12-week ultrasound, admitted in active labor. complicated by: Resolved pelviectasis, COVID in , subclinical hypothyroidism. ?Admit to labor and delivery ?Routine orders ?Subclinical hypothyroidism: Continue Synthroid. Will need repeat labs Assessment & Plan Assessment/Plan (1) Active labor: (2) Subclinical hypothyroidism:
[2021-08-24] MEDS: Oxytocin 30 units/NS 500 ml 30 UNITS/500 ML IV.SOLN 334 UNITS IV (18:15)
--- NOTE | 2021-08-24 18:25 | EX.PCM.OBRPT ---
Maternal Data Information Final SRINI: 08/18/21 Final SRINI Source: LMP Vaginal Delivery Maternal Presentation Maternal Presentation: Active Labor Operative Information Date of Procedure: 08/24/21 Pre-Operative Diagnosis: Vega intrauterine at term Post-Operative Diagnosis: Vega intrauterine at term Surgery / Procedure Performed: Spontaneous Vaginal Delivery Type of Anesthesia: None Estimated Blood Loss: 350cc Findings Description of Procedure: Spontaneous vaginal delivery of viable infant female. No nuchal cord. Baby to mom. Cord clamped and cut. Spontaneous delivery of placenta. Lidocaine injected, first degree laceration repaired in usual fashion. Hemostatic. A Gender: Female (1 minute): 9 (5 minute): 9
--- NOTE | 2021-08-24 19:02 | NURSING ---
agrees with DIOGO Rosales Charting
[2021-08-25] MEDS: Ibuprofen 600 MG Tablet PO ×2 (00:08→08:33)
--- NOTE | 2021-08-25 02:25 | NURSING ---
Report given to Kathy LIND, taking over mother and care at this time.
[2021-08-25 03:15] VITALS: BP 108/60; PULSE 80; RESP 16; TEMP 36.2
[2021-08-25] MEDS: Levothyroxine 50 MCG Tablet PO (05:39)
[2021-08-25 08:46] VITALS: BP 122/80; PULSE 80; RESP 16; TEMP 36.3
--- NOTE | 2021-08-25 12:17 | PCM.PN.OB ---
Subjective Subjective day 1. Healing well. Lochia minimal. Patient not sore today. Breast-feeding going well. Objective Data Objective Data Vital Signs: Vital Signs Temp Pulse Resp BP Pulse Ox 97.4 F L 80 16 122/80 H 100 08/25/21 08:46 08/25/21 08:46 08/25/21 08:46 08/25/21 08:46 08/24/21 20:17 Oxygen Delivery Method Room Air Weight: 101.605 kg Body Mass Index (BMI) 36.1 Intake & Output: Intake and Output for Last 24 Hours 08/23/21 08/24/21 08/25/21 23:59 23:59 23:59 Intake Total 1000.83 / 1000.83 Output Total 1200 / 1200 Balance -199.17 / -199.17 Lab / Micro Data Result Diagrams: 08/24/21 16:15 Labs: Laboratory Results - last 24 hr 08/24/21 16:15: WBC 9.9, RBC 4.55, Hgb 12.5, Hct 37.9, MCV 83.3, MCH 27.5, MCHC 33.0, RDW Std Deviation 39.9, RDW Coeff of Catrachita 13.2, Plt Count 225, MPV 10.5, Immature Gran % (Auto) 0.300, Neut % (Auto) 76.0 H, Lymph % (Auto) 15.1 L, [place] % (Auto) 8.0, Eos % (Auto) 0.3, Baso % (Auto) 0.3, Absolute Neuts (auto) 7.5, Absolute Lymphs (auto) 1.50, Nucleated RBC % 0 08/24/21 16:15: Blood Type A POSITIVE, Antibody Screen NEGATIVE Micro: Microbiology 08/24/21 16:35 Nasal Secretion SARS-CoV-2 Antigen (Rapid) - Final Physical Exam Const alert, oriented x3 and no apparent distress HEENT normocephalic Head and Scalp: atraumatic Neck full ROM Resp normal respiratory effort Cardio regular rate GI normal to inspection, nondistended, normoactive bowel sounds GI Narrative: Uterus 2 cm below umbilicus Back/Spine normal ROM Extremity normal to inspection Extremity Narrative: Minimal pedal edema Neuro no focal motor deficits and no sensory deficits noted Psych mental status grossly normal and affect normal Assessment & Plan (1) (spontaneous vaginal delivery): PLAN: day 1 status post . Complicated by subclinical hypothyroidism on Synthroid, will need repeat labs in 4 to 6 weeks. Desires home-going today. Follow-up 2-week telehealth visit in 6-week visit in office. (2) Subclinical hypothyroidism:
--- NOTE | 2021-08-25 12:18 | PCM.DC ---
Discharge Instructions Diet Discharge Diet: No restrictions Activity Discharge Activity: Return to Normal Activity and May Shower May resume sexual activity in: 4-6 weeks Weight Bearing Status: Weight bearing as tolerated Lifting Restrictions: No greater than 25 pounds Dressing / Incision Call your doctor if you observe: Fever of 101 or Higher, Change in Color, Inability to urinate, Using more than 1 pad per hour, Shortness of breath, Dizziness, Swelling in the ankles, Chest pain and Calf discomfort Follow Up Care Please Follow Up With: Any Marley MD When: 2-week telehealth appointment and 6-week visit Test Results: Test results from this visit will be discussed in further detail at your follow-up appointment, if applicable. Discharge Plan Admission Admit Date/Time: 08/24/21 15:40 Primary Reason for Your Visit: Vaginal Delivery Attending Provider: Xiomara Rubio Primary Care Provider: Cheikh Dozier Discharge Orders/Prescriptions Prescriptions: No Action vit,[id number] 1 TABLET tablet 1 tab PO DAILY RF: 0 levothyroxine 50 mcg tablet 50 mcg PO DAILY RF: 0 Referrals / Follow Up: Cheikh Dozier MD [Primary Care Provider] - Disposition Disposition (needs filled in before D/C Order can be placed): Home, Self Care
[2021-08-25 13:02] VITALS: BP 118/45; PULSE 70; RESP 16; TEMP 36.6
[2021-08-25 17:35] VITALS: BP 113/60; PULSE 80; RESP 16; TEMP 36.3
== END 2021-08-25 19:25 | disposition home or self-care (01) | DRG 807 ==
PROVIDERS: Obstetrics & Gynecology; Admitting Provider Student in an Organized Health Care Education/Training Program; PCP Family Medicine; Visit Provider Student in an Organized Health Care Education/Training Program
DX: O99.284 Endocrine, nutritional and metabolic diseases complicating childbirth (principal); Z37.0 Single live birth; E02 Subclinical iodine-deficiency hypothyroidism; O70.0 First degree perineal laceration during delivery; Z3A.40 40 weeks gestation of pregnancy; Z79.899 Other long term (current) drug therapy; Z86.16 Personal history of COVID-19
CPT/HCPCS: 59025; 59050; 85025; 86850; 86900; 86901; 87426; 99218; J7120; G0378

== ENCOUNTER → 2021-11-16 | Outpatient (CLI) | payer OTHER, SELFPAY ==
[2021-11-16 15:58] LABS: T3 Total - Triiodothyronine 0.93 ng/mL (0.6-1.81)
[2021-11-16 16:04] LABS: Free T3 2.5 pg/mL (2.18-3.98); T4 Free Direct 0.86 ng/dL (0.76-1.46); Thyroid Stim Hormone (TSH) 1.62 uIU/mL (0.358-3.74)
== END | disposition home or self-care (01) ==
LOC: WOBLAB 14:15
PROVIDERS: PCP Family Medicine; Visit Provider Obstetrics & Gynecology
DX: E03.8 Other specified hypothyroidism (principal); Z51.81 Encounter for therapeutic drug level monitoring
CPT/HCPCS: 36415; 84439; 84443; 84480; 84481

== ENCOUNTER → 2023-02-14 | Outpatient (CLI) | payer OTHER, SELFPAY ==
[2023-02-14 12:34] LABS: Hematocrit 37.3 % (37-47); Hemoglobin 12.9 g/dL (12.0-15.0); Mean Corp Hgb Conc 34.6 g/dL (32-36); Mean Corpuscular Hgb 30.2 pg (27.0-32.0); Mean Corpuscular Volume 87.4 fL (81-99); Mean Platelet Vol. 9.9 fl (6.2-12.0); Platelet Count 186 K/mm3 (150-450); RBC Distribution Width CV 12.9 % (11.6-14.6); RBC Distribution Width SD 41.4 fl (35.1-43.9); Red Blood Count 4.27 M/mm3 (4.2-5.4)
[2023-02-14 13:52] LABS: T4 Free Direct 0.78 ng/dL (0.76-1.46); Thyroid Stim Hormone (TSH) 2.97 uIU/mL (0.358-3.74)
== END | disposition home or self-care (01) ==
LOC: WOBLAB 12:18
PROVIDERS: Visit Provider Student in an Organized Health Care Education/Training Program
DX: Z34.83 Encounter for supervision of other normal pregnancy, third trimester (principal)
CPT/HCPCS: 36415; 84439; 84443; 85027; 87081

== ENCOUNTER 2023-03-04 17:55 | Outpatient (CLI) | payer OTHER, SELFPAY ==
[2023-03-04 18:20] VITALS: TEMP 36.4
[2023-03-04 18:23] VITALS: BP 103/59; PULSE 84
[2023-03-04 18:29] VITALS: BMI 40.8
--- NOTE | 2023-03-07 11:01 | OB.TRI.NOTE ---
HPI - General General Date of Admission: 03/04/23 Date of Service: 03/04/23 Chief Complaint: r/o labor HPI Narrative CARLA PORTER, is a 32 F who presents at 39 week gestation with the sensation of something felt in vagina. No regular ctx's. No vb or lof. Good FM. PFSH PFSH Home Medications vits,calcium no.78-iron fumarate-folic acid 29 mg-1 mg tablet 1 tab PO DAILY 05/08/20 [History Last Taken 08/23/21 0900] levothyroxine 50 mcg tablet 50 mcg PO DAILY 08/24/21 [History Last Taken 08/24/21 0630] Allergy/AdvReac Type Severity Reaction Status Date / Time latex Allergy Rash Verified 08/24/21 15:56 Social History Smoking Status: Never smoker History Elective abortions Hx Para 1 Spontaneous abortions Hx # Term Pregnancies Ectopic pregnancies Hx # Pregnancies Multiple births # of living children NST FHR Rate Baby A Baseline: 120 Variability:: Moderate Accelerations:: 15 x 15 Decelerations:: None NST Reactive:: Yes FHR Category:: Category I Assessment & Plan (1) 39 weeks gestation of : PLAN: Pt's cervix remains unchanged after observation. Patient request to go home and she wishes to follow-up in the office this week at the time of her scheduled appointment.
== END 2023-03-04 18:50 | disposition home or self-care (01) ==
LOC: WPOUT 18:16 → WP 18:17
PROVIDERS: Referring Provider Obstetrics & Gynecology; Visit Provider Obstetrics & Gynecology
DX: O47.1 False labor at or after 37 completed weeks of gestation (principal); Z3A.39 39 weeks gestation of pregnancy

== ENCOUNTER 2023-03-08 09:00 | Inpatient (IN) | payer OTHER, SELFPAY ==
[2023-03-08] VITALS (23 sets, daily range): BP systolic 100–130; BP diastolic 54–76; PULSE 70–90; RESP 16; TEMP 36.5–37.1; O2SAT 95–98; BMI 40.5
[2023-03-08] MEDS: Lactated Ringers 1,000 ML 50 ML IV (09:10)
[2023-03-08 09:29] LABS: Absolute Lymphocyte Count 1.18 X10^3/uL (0.83-4.51); Absolute Neutrophil Count 7.1 X10^3/uL (2.0-7.7); Basophil# 0.04 X10^3/uL; Basophil% 0.4 % (0-1); Eosinophil# 0.04 X10^3/uL; Eosinophils% 0.4 % (0-5); Hematocrit 40.7 % (37-47); Hemoglobin 13.3 g/dL (12.0-15.0); Lymphocyte # 1.18 X10^3/ul (0.83-4.51); Mean Corp Hgb Conc 32.7 g/dL (32-36); Mean Corpuscular Hgb 28.6 pg (27.0-32.0); Mean Corpuscular Volume 87.5 fL (81-99); Mean Platelet Vol. 10.8 fl (6.2-12.0); Monocyte# 0.66 X10^3/uL; Monocyte% 7.3 % (0-10); NRBC Flagged by Analyzer 0 % (0-5); Neutrophil # 7.12 X10^3/uL (2.7-7.7); Neutrophil % 78.3 % (47-70); Platelet Count 192 K/mm3 (150-450); RBC Distribution Width CV 13.2 % (11.6-14.6); RBC Distribution Width SD 42.5 fl (35.1-43.9); Red Blood Count 4.65 M/mm3 (4.2-5.4); White Blood Count 9.1 K/mm3 (4.4-11.0)
[2023-03-08 10:03] LABS: Syphilis Antibodies Non-reactive
[2023-03-08] MEDS: Oxytocin 15 Units/NS 250ml 15 UNITS/250 ML IV.SOLN 2 UNITS IV (10:45)
[2023-03-08 11:25] LABS: HIV - WCH Non-Reactive (Nonreactive); Hepatitis C Antibody Non-Reactive (Nonreactive)
[2023-03-08] MEDS: Ondansetron 4 MG/2 ML Vial IV (11:51)
[2023-03-08] MEDS: Lidocaine 1% (20 ml mdv) 20 ML Vial INFILT (12:34)
--- NOTE | 2023-03-08 12:49 | PCM.OPRPT ---
Problems Associated Problem List Diagnoses (1) (spontaneous vaginal delivery): (2) Obesity affecting : (3) Subclinical hypothyroidism: (4) 40 weeks gestation of : Report of Operation Date of Procedure: 03/08/23 Pre-Operative Diagnosis: 40 week gestation, SROM, multiparous patient Post-Operative Diagnosis: As above Surgery/Procedure Performed:: Repair of first degree vaginal laceration Description of Surgical Findings:: VFI in MAGGIE position. Nuchal cord x 1 around 's leg. Normal appearing and intact placenta with 3 VC. Surgeon: Latha Cordova Type of Anesthesia: None Special Medications: None Specimen's removed: Placenta Drains: None Estimated Blood Loss (mL): 150 Fluids Replaced: N/A Description of Procedure: The patient progressed to complete. With pushing the head of the was delivered in left occiput anterior position. The anterior shoulder was delivered with gentle downward traction without any excessive force or delay. The posterior shoulder and body of the were delivered without any force or delay. A vigorous viable female was delivered atraumatically and placed on the maternal abdomen. The cord was clamped and cut after a 60 sec delay by the father of the baby. Placenta delivered with fundal massage. The placenta was noted to be normal-appearing and intact with a three-vessel cord. Fundus was firm and bleeding hemostatic. A first-degree vaginal laceration was repaired with using 3-0 Vicryl in usual sterile fashion. A vaginal sweep was performed. Sponge counts were correct. Grafts/Implants Used: None Complications None
--- NOTE | 2023-03-08 12:54 | PCM.HP.OB ---
HPI - General General Date of Admission: 03/08/23 Date of Service: 03/08/23 Chief Complaint: SROM HPI Narrative CARLA PORTER, is a 32 F who presents at 40w1d with SROM for meconium stained fluid. Irregular and mild ctx's. No vb. Good FM. PFSH PFSH Medical History no medical history Home Medications vits,calcium no.78-iron fumarate-folic acid 29 mg-1 mg tablet 1 tab PO DAILY 05/08/20 [History Last Taken 03/07/23 08:00] famotidine 20 mg tablet (Acid Controller) 20 mg PO BID 03/08/23 [History Last Taken 03/08/23 07:15] Allergy/AdvReac Type Severity Reaction Status Date / Time latex Allergy Rash Verified 03/08/23 08:53 Family History no significant family his Surgical History no surgical history Social History Smoking Status: Never smoker History Elective abortions Hx Para 2 Spontaneous abortions Hx # Term Pregnancies Ectopic pregnancies Hx # Pregnancies Multiple births # of living children NST FHR Rate Baby A Baseline: 125 Variability:: Moderate Accelerations:: 15 x 15 Decelerations:: None FHR Category:: Category I Uterine Activity:: irregular ctx's Vital Signs Vital Signs Vital Signs: 03/08/23 09:48 03/08/23 09:48 03/08/23 09:48 Temperature Temperature Source Temporal Pulse Rate 83 Blood Pressure BP Systolic BP Diastolic Pulse Ox 95 03/08/23 09:49 03/08/23 09:49 03/08/23 09:48 Temperature 98.1 F Temperature Source Pulse Rate 78 Blood Pressure 103/56 L BP Systolic 103 BP Diastolic 56 Pulse Ox 03/08/23 08:40 03/08/23 08:40 03/08/23 08:40 Temperature Temperature Source Temporal Pulse Rate 80 Blood Pressure 127/64 H BP Systolic 127 BP Diastolic 64 Pulse Ox 03/08/23 08:40 03/08/23 08:40 03/08/23 10:44 Temperature 97.9 F Temperature Source Pulse Rate Blood Pressure 117/76 BP Systolic 117 BP Diastolic 76 Pulse Ox 97 03/08/23 10:44 03/08/23 10:44 03/08/23 10:45 Temperature Temperature Source Temporal Pulse Rate 84 Blood Pressure BP Systolic BP Diastolic Pulse Ox 98 03/08/23 10:49 03/08/23 10:49 03/08/23 10:45 Temperature 98.1 F Temperature Source Pulse Rate 86 Blood Pressure BP Systolic BP Diastolic Pulse Ox 97 03/08/23 11:22 03/08/23 11:23 03/08/23 11:23 Temperature Temperature Source Temporal Pulse Rate 86 Blood Pressure 107/66 BP Systolic 107 BP Diastolic 66 Pulse Ox 03/08/23 11:22 03/08/23 11:22 03/08/23 12:42 Temperature 98.0 F Temperature Source Pulse Rate Blood Pressure 130/58 H BP Systolic 130 BP Diastolic 58 Pulse Ox 95 03/08/23 12:42 Temperature Temperature Source Pulse Rate 86 Blood Pressure BP Systolic BP Diastolic Pulse Ox Weight Weight: 251 lb Body Mass Index (BMI) 40.5 Labs Labs Labs: Blood Type A POSITIVE Antibody Screen NEGATIVE Hct 40.7 % (37-47) Hgb 13.3 g/dL (12.0-15.0) Syphilis Total Ab Non-reactive Rubella IgG Antibody Reactive (Nonreactive) Hep Bs Antigen Non-Reactive (Nonreactive) Chlamydia DNA (ELEAZAR) Negative (Negative) Neisseria gonorrhoeae DNA (ELEAZAR) Negative (Negative) HIV 1&2 Antibody Non-Reactive (Nonreactive) Glucose 1 Hr 50 gm 128 mg/dL (70-140) Rhogam given: No Miscellaneous Test COMMENT Assessment & Plan (1) 40 weeks gestation of : PLAN: Patient presents with SROM for meconium stained fluid. Some irregular mild contractions. Start Pitocin for augmentation. Admit for routine intrapartum care. Continuous external monitoring. GBS negative. Proven pelvis with 2 prior vaginal deliveries. Estimated weight expected to be less than 4500 g and pelvis adequate. Anticipate a vaginal delivery. (2) Obesity affecting : (3) Subclinical hypothyroidism: (4) (spontaneous vaginal delivery):
[2023-03-08] MEDS: Oxytocin 15 Units/NS 250ml 15 UNITS/250 ML IV.SOLN 83 UNITS IV (13:00)
[2023-03-08] MEDS: Ibuprofen 600 MG Tablet PO (13:34)
[2023-03-08] MEDS: Acetaminophen 500 MG Tablet 1000 MG PO (13:35)
[2023-03-08] MEDS: Benzocaine/Lanolin/Aloe Vera 1 SPRAY EACH TOPICAL (14:21)
[2023-03-09] VITALS (7 sets, daily range): BP systolic 108–121; BP diastolic 67–72; PULSE 62–81; RESP 14–18; TEMP 36.4–36.6; O2SAT 96–97
[2023-03-09] MEDS: Ibuprofen 600 MG Tablet PO (00:57)
[2023-03-09] MEDS: Acetaminophen 500 MG Tablet 1000 MG PO (00:57)
--- NOTE | 2023-03-09 05:00 | NURSING ---
this RN gave report to wesley RN. that RN to assume care of couplet at this time.
--- NOTE | 2023-03-09 06:33 | PCM.PN.OB ---
Subjective Subjective Pt is doing well. She offers no complaints and desires discharge today. She is ambulating and voiding without difficulty. She is tolerating a diet without nausea or vomiting. Lochia is normal. She denies lightheadedness, dizziness, chest pain, shortness of breath, leg pain. Objective Data Objective Data Vital Signs: Vital Signs Temp Pulse Resp BP Pulse Ox O2 Del Method 97.5 F L 62 18 121/70 H 97 Room Air 03/09/23 05:00 03/09/23 05:03 03/09/23 05:00 03/09/23 05:03 03/08/23 14:41 03/09/23 05:00 Oxygen Delivery Method Room Air Weight: 251 lb Body Mass Index (BMI) 40.5 Intake & Output: Intake and Output for Last 24 Hours 03/07/23 03/08/23 03/09/23 23:59 23:59 23:59 Intake Total 593.31 / 593.31 Output Total 750 / 750 Balance -156.69 / -156.69 -1 / -1 Lab / Micro Data 03/08/23 09:10 Labs: Laboratory Results - last 24 hr 03/08/23 09:10: WBC 9.1, RBC 4.65, Hgb 13.3, Hct 40.7, MCV 87.5, MCH 28.6, MCHC 32.7, RDW Std Deviation 42.5, RDW Coeff of Catrachita 13.2, Plt Count 192, MPV 10.8, Immature Gran % (Auto) 0.600, Neut % (Auto) 78.3 H, Lymph % (Auto) 13.0 L, [place] % (Auto) 7.3, Eos % (Auto) 0.4, Baso % (Auto) 0.4, Absolute Neuts (auto) 7.1, Absolute Lymphs (auto) 1.18, Nucleated RBC % 0, Syphilis Total Ab Non-reactive, Hepatitis C Antibody Non-Reactive, HIV 1&2 Antibody Non-Reactive, Blood Type A POSITIVE, Antibody Screen NEGATIVE Physical Exam Const alert and no apparent distress General Appearance: comfortable HEENT normocephalic Resp normal respiratory effort GI soft to palpation, non-tender and non-distended GI Narrative: FF@U-2 Extremity normal to inspection and no calf tenderness Assessment & Plan (1) (spontaneous vaginal delivery): PLAN: Pt is day 1 from a vaginal delivery. Desires discharge today. Patient and are doing well. Discharge instructions reviewed.
--- NOTE | 2023-03-09 06:35 | DCINST_ITS ---
Discharge Instructions Diet Discharge Diet: No restrictions Activity Discharge Activity: May Drive and May Shower May resume sexual activity in: 6 weeks Ice area for (Minutes): 15 Weight Bearing Status: Weight bearing as tolerated Lifting Restrictions: nothing heavier than baby Dressing / Incision Call your doctor if you observe: Fever of 101 or Higher, Coldness, Increased Pain, Numbness or Tingling, Change in Color, Inability to urinate, Inability to have a bowel movement, Using more than 1 pad per hour, Shortness of breath, Dizziness, Fainting spells, Swelling in the ankles, Chest pain, Increased palpitations (irregular heartbeat), Calf discomfort and Uncontrolled pain Cleanse incision/area with: Soap & Water Follow Up Care Please Follow Up With: Latha Cordova DO When: 1-2 weeks for early visit 6 weeks for exam Test Results: Test results from this visit will be discussed in further detail at your follow- up appointment, if applicable. Discharge Plan Admission Admit Date/Time: 03/08/23 09:00 Primary Reason for Your Visit: delivery Attending Provider: Latha Cordova Primary Care Provider: Care PhysicianDarya Primary Instructions Patient Instructions: After a Vaginal Discharge Orders/Prescriptions Prescriptions: Continued vit,[id number] 1 TABLET tablet 1 tab PO DAILY Discontinued famotidine [Acid Controller] 20 mg tablet 20 mg PO BID Referrals / Follow Up: Care PhysicianDarya Primary [Primary Care Provider] - Disposition Disposition (needs filled in before D/C Order can be placed): Home, Self Care
[2023-03-09] MEDS: Senna/Docusate Sodium 1 Tablet PO (08:43)
== END 2023-03-09 14:20 | disposition home or self-care (01) | DRG 807 ==
LOC: WPOUT 09:12 → WP 12:36
PROVIDERS: Admitting Provider Obstetrics & Gynecology; Referring Provider Obstetrics & Gynecology; Visit Provider Obstetrics & Gynecology
DX: O42.92 Full-term premature rupture of membranes, unspecified as to length of time between rupture and onset of labor (principal); Z37.0 Single live birth; E03.8 Other specified hypothyroidism; O99.214 Obesity complicating childbirth; O99.284 Endocrine, nutritional and metabolic diseases complicating childbirth; O70.0 First degree perineal laceration during delivery; O77.0 Labor and delivery complicated by meconium in amniotic fluid; O69.82X0 Labor and delivery complicated by other cord entanglement, without compression, not applicable or unspecified; Z3A.40 40 weeks gestation of pregnancy
CPT/HCPCS: 59025; 59050; 85025; 86703; 86780; 86803; 86850; 86900; 86901; 99221; J7120; G0378; J2405